=== PATIENT | male | born 1975 | race Caucasian/White ===

== ENCOUNTER 2024-04-26 01:45 | Emergency (ER) | payer MEDICAID ==
[2024-04-26 02:55] LABS: BASOPHILS ABSOLUTE AUTO 0.05 K/uL (0.00-0.10); BASOPHILS PERCENT AUTO 0.5 % (0.1-1.3); EOSINOPHILS ABSOLUTE AUTO 0.12 K/uL (0.00-0.40); EOSINOPHILS PERCENT AUTO 1.1 % (0.0-5.4); HEMATOCRIT 45.8 % (38.4-49.7); HEMOGLOBIN 15.9 g/dL (12.9-16.9); IMMATURE GRAN ABSOLUTE AUTO 0.07 K/uL (0.00-0.23); IMMATURE GRAN PERCENT AUTO 0.7 % (0.0-0.7); LYMPHOCYTES ABSOLUTE AUTO 1.91 K/uL (0.8-3.3); LYMPHOCYTES PERCENT AUTO 18.2 % (11.4-47.7); MEAN CORPUSCULAR HEMOGLOBIN 28.1 pg (31.6-35.5); MEAN CORPUSCULAR HGB CONC 34.7 g/dL (31.6-35.5); MEAN CORPUSCULAR VOLUME 81.1 fL (81.4-99.0); MONOCYTES ABSOLUTE AUTO 1.05 K/uL (0.20-0.90); NEUTROPHILS ABSOLUTE AUTO 7.28 K/uL (1.0-7.6); NEUTROPHILS PERCENT AUTO 69.5 % (40.0-78.1); PLATELET COUNT,PLT 213 K/uL (130-375); RED BLOOD CELL COUNT 5.65 M/uL (4.14-5.76); WHITE BLOOD CELL COUNT,WBC 10.5 K/uL (3.2-11.0)
[2024-04-26 03:09] LABS: CALCIUM 9.4 mg/dL (8.5-10.1); EST CRCL DRUG DOSING (CG) 104.31 mL/min; POTASSIUM,K 3.4 mmol/L (3.6-5.2)
[2024-04-26 03:11] LABS: ANION GAP 14.4 mmol/L (5.0-14.0)
[2024-04-26] MEDS: hydrALAZINE 20 MG/ML SDV IVPUSH ONE (04:32)
[2024-04-26] MEDS: Amoxicillin/Clavulanate K 875-125 MG Tab PO ONE (05:40)
[2024-04-26] MEDS: Labetalol 20 MG/4 ML Syringe IVPUSH ONE (05:41)
[2024-04-26] MEDS: Benzocaine/Cetylpyridinium/Menthol Lozenge MUCMEM ONE (05:41)
== END 2024-04-26 06:11 | disposition left against medical advice (07) ==
LOC: JP.ED 01:45
DX: J18.9 Pneumonia, unspecified organism (principal); Z79.899 Other long term (current) drug therapy; Z87.891 Personal history of nicotine dependence
CPT/HCPCS: 36415; 71045; 80048; 85025; 87635; 96374; 96375; 99284; A9270; J0360; J1920; 99283; U0002